=== PATIENT | male | born 1945 | race Caucasian/White ===

== ENCOUNTER → 2018-12-19 | Outpatient (REF) | payer MEDICARE, OTHER ==
[~2018-12-19] MED LIST: CRESTOR20 MG PO; CRESTOR40 MG PO; ELOCON0.12 EX; FLONASE NASAL50 MCG; MET12.5TAB PO; MULTIVITAMIN PO; NORVASC OR; PRILOSEC20 MG PO; TOPROL XL25 M1 PO; VOLTAREN75 M1 OR; WARFARIN2.5 MG PO
[2018-12-19 08:50] LABS: INTERNATIONAL NORMALIZED RATIO 2.3 RATIO (0.7-1.3); PROTHROMBIN TIME 24.3 SECONDS (9.0-12.5)
== END | disposition home or self-care (01) ==
LOC: LAB 07:03
PROVIDERS: ATTEND Internal Medicine Cardiovascular Disease
DX: I48.0 Paroxysmal atrial fibrillation (principal)